=== PATIENT | male | born 1955 | race Caucasian/White ===

== ENCOUNTER → 2024-03-21 09:10 | Outpatient (REF) | payer BC, MEDICARE, SELFPAY | LOC: RAD 09:10 | PROVIDERS: ATTENDING PHYSICIAN Orthopaedic Surgery Adult Reconstructive Orthopaedic Surgery; FAMILY PHYSICIAN Family Medicine | DX: Z96.653 Presence of artificial knee joint, bilateral (principal); M25.561 Pain in right knee | CPT/HCPCS: 78315; A9503 ==